=== PATIENT | male | born 1975 | race African-American/Black ===

== ENCOUNTER 2021-05-31 12:27 | Emergency (ER) | payer OTHER ==
[2021-05-31 12:45] VITALS: BP 136/64; PULSE 115; TEMP 98.3; BMI 25.8
== END 2021-05-31 16:34 | disposition home or self-care (01) ==
LOC: JER 12:27
DX: R63.0 Anorexia (principal)
CPT/HCPCS: 99281-25

== ENCOUNTER 2024-04-20 04:45 | Emergency (ER) | payer OTHER ==
[2024-04-20 04:49] VITALS: BP 113/75; PULSE 93; RESP 18; TEMP 98.3; BMI 27.3
[2024-04-20] MEDS: ALBUTEROL SO4 2.5/IPRATROPIUM 0.5 INH SOL 3 ML VIAL.NEB. NEB SCH (05:15)
[2024-04-20] MEDS ORDERED: DEXAMETHASONE SOD PHOSPHATE 10 MG/1 ML VIAL ONE (05:27)
[2024-04-20] MEDS ORDERED: ALBUTEROL SO4 HFA INHALER IH ONE (05:27)
[2024-04-20] MEDS: ALBUTEROL SO4 HFA INHALER IH ONE (05:38)
[2024-04-20] MEDS: DEXAMETHASONE 4 MG TABLET (FP) PO ONE (05:38)
[2024-04-20] MEDS ORDERED: amLODIPine BESYLATE 5 MG TABLET (FP) ONE (05:53)
== END 2024-04-20 06:50 | disposition home or self-care (01) ==
LOC: JER 04:45
PROC: 3E0F7GC Introduction of Other Therapeutic Substance into Respiratory Tract, Via Natural or Artificial Opening (ICD-10-PCS; principal; 2024-04-20)
DX: J45.909 Unspecified asthma, uncomplicated (principal)
CPT/HCPCS: 99283-25